=== PATIENT | male | born 1965 | race Caucasian/White ===

== ENCOUNTER 2024-01-17 08:17 | Outpatient (CLI) | payer OTHER, SELFPAY | END 2024-01-17 08:18 | disposition home or self-care (01) | LOC: ANHAUDIO 08:18 | PROVIDERS: PCP Emergency Medicine; Visit Provider Emergency Medicine | DX: H93.11 Tinnitus, right ear (principal); H90.3 Sensorineural hearing loss, bilateral | CPT/HCPCS: 92557; 92567 ==